=== PATIENT | female | born 1945 | race Hispanic/Latino ===

== ENCOUNTER 2016-12-09 16:02 | Emergency (ER) | payer MEDICARE, MEDICAID ==
[~2016-12-09] VITALS: Ht 152.4 cm; Wt 85.0 kg
[~2016-12-09 16:02] MED LIST: AGGRENOX 200/251 CAP PO; ALBUTEROL SUL0.083 % IN; ALBUTEROL0.5 % IN; ALBUTEROL2.5 MG/31 IN; ALREX0.2 % OP; ALREX0.2 % OU; ANTI-FUNGAL12 TOP; ASPIRIN LOW DOS81 M2 PO; ASPIRIN81 M1 OR; ASPIRIN81 MG OR; ATARAX OR; ATROVENT I0.5 MG/VIA IN; ATROVENT INH0.5 MG IN; BABY ASPIRIN81 MG PO; BACLOFEN10 MG PO; BAYER LOW81 MG OR; BAYER LOW81 MG PO; BENICAR HCT1 TA2 PO; BENICAR40 MG OR; BENICAR40 MG PO; CEFTIN500 MG PO; CIPRO500 MG OR; CIPRODEX1 ML AS; CIPROFLOXACN500 MG PO; CLOPIDOGREL75 MG PO; CORTISPORIN OTI10 ML AD; CYANOCOBALAM1000 MCG IJ; CYANOCOBALAM1000 MCG IM; CYANOCOBALAM1000 MCG SC; DARVOCET-N 100100 MG OR; DICLOFENAC SODIUM3 % TOP; DIPYRIDAMOLE25 MG OR; DIPYRIDAMOLE25 MG PO; DOXYCYCL HYC100 MG PO; DULERA1 AE1 IN; DUONEB IN; FLONASE NASAL50 MCG; FLONASE0.05 %; FLORASTOR250 M1 PO; FLOVENT DISK100 MCG IN; FLUTICASONE50 MCG; HYDROCHLOROT25 MG OR; HYDROCHLOROT25 MG PO; HYDROXYZ HCL25 MG PO; KETOROLAC10 MG PO; KETOROLAC60 MG/2 ML IJ; LEVAQUIN500 MG PO; LISINOP/HCTZ1 TA1 PO; LISINOP/HCTZ1 TA2 PO; LISINOP/HCTZ1 TAB PO; LOPERAMIDE1 MG/5 ML OR; LOTRISONE EX; Levaquin OR; MECLIZINE12.5 M1 PO; MEDDOSEPAK OR; MEDDOSEPAK PO; NASONEX50 MCG/AC NAS; NEBULIZE1 INH; NEXIUM40 M1 OR; OMEPRAZOLE20 MG PO; OMEPRAZOLE40 MG PO; PERCOCET 5/325M1 TAB OR; PERCOCET1 TA2 PO; PERSANTINE25 MG OR; PERSANTINE25 MG PO; PERSANTINE75 MG PO; PREDNISONE10 MG PO; PREDNISONE20 MG PO; PREVACID30 M1 PO; PREVACID30 M2 OR; PRILOSEC20 MG PO; PRILOSEC20 MG/CAP PO; PRILOSEC40 MG PO; PROAIR HFA IN; PROTONIX40 M2 PO; SIMVASTATIN10 MG PO; SIMVASTATIN20 MG PO; TETRACYCLINE500 MG OR; TIZANIDINE4 MG PO; TORADOL30 MG/VIAL IJ; TRAMADOL HCL50 MG PO; TRIAMCINOLON0.5 % EX; TYLENOL500 MG OR; ULTRAM50 MG OR; ULTRAM50 MG PO; VISINE0.05 % OP; VITAMIN C500 M1 OR; VYTORIN 10/201 TAB OR; ZITHROMAX250 MG OR; ZITHROMAX500 MG PO; ZOCOR20 MG OR; ZOCOR20 MG PO; ZPAK OR; ZPAK PO; ZYRTEC10 MG OR
[2016-12-09] MEDS ORDERED: MECLIZINE25 MG PO (16:22)
[2016-12-09] MEDS ORDERED: LORTAB 5-325 MG1 TAB PO (16:55)
[2016-12-09] MEDS ORDERED: EC-NAPROSYN500 MG PO (16:55)
[2016-12-09 17:00] VITALS: BP 122/77
== END 2016-12-09 17:10 | disposition home or self-care (01) ==
LOC: ED 16:02
DX: M75.51 Bursitis of right shoulder (principal); M19.90 Unspecified osteoarthritis, unspecified site; I10 Essential (primary) hypertension; Z86.73 Personal history of transient ischemic attack (TIA), and cerebral infarction without residual deficits; E78.00 Pure hypercholesterolemia, unspecified; F17.210 Nicotine dependence, cigarettes, uncomplicated; Z96.611 Presence of right artificial shoulder joint

== ENCOUNTER 2017-09-01 07:16 | Day surgery (SDC) | payer MEDICARE, MEDICAID ==
[~2017-09-01 07:16] MED LIST changes: +EC-NAPROSYN500 MG PO; +IBUPROFEN200 MG PO; +LORTAB 5-325 MG1 TAB PO; +MECLIZINE25 MG PO
[2017-09-01 10:03] VITALS: BP 140/62
== END 2017-09-01 10:25 | disposition home or self-care (01) ==
LOC: ENDO 07:16 → ORM 08:40 → ENDO 08:40 → ORM 09:00 → ENDO 10:25
PROVIDERS: ATTEND Surgery
PROC: 0DB48ZX Excision of Esophagogastric Junction, Via Natural or Artificial Opening Endoscopic, Diagnostic (ICD-10-PCS; principal; 2017-09-01)
PROC: 0DB68ZX Excision of Stomach, Via Natural or Artificial Opening Endoscopic, Diagnostic (ICD-10-PCS; 2017-09-01)
PROC: 0DBM8ZX Excision of Descending Colon, Via Natural or Artificial Opening Endoscopic, Diagnostic (ICD-10-PCS; 2017-09-01)
DX: K29.50 Unspecified chronic gastritis without bleeding (principal); K63.5 Polyp of colon; R19.4 Change in bowel habit

== ENCOUNTER 2018-01-17 15:45 | Emergency (ER) | payer MEDICARE, MEDICAID ==
[~2018-01-17] VITALS: Ht 160 cm; Wt 70.0 kg
[2018-01-17] MEDS ORDERED: ZITHROMAX250 MG PO (16:32)
[2018-01-17] MEDS ORDERED: MEDDOSEPAK PO (16:32)
[2018-01-17] MEDS ORDERED: MECLIZINE25 MG PO (16:36)
[2018-01-17] MEDS ORDERED: LOSARTAN/HCT1 TA1 PO (16:37)
[2018-01-17] MEDS ORDERED: DIPYRIDAMOLE25 MG PO (16:37)
[2018-01-17 16:55] VITALS: BP 140/71
== END 2018-01-17 16:55 | disposition home or self-care (01) ==
LOC: ED 15:45
DX: J40 Bronchitis, not specified as acute or chronic (principal); F17.210 Nicotine dependence, cigarettes, uncomplicated; R05 Cough

== ENCOUNTER 2019-03-24 | Emergency (ER) | payer MEDICARE, MEDICAID ==
[~2019-03-24] MED LIST changes: +LOSARTAN/HCT1 TA1 PO; +ZITHROMAX250 MG PO
[2019-03-24] MEDS ORDERED: NAPROXEN500 MG PO ×2 (15:02)
== END 2019-03-24 14:45 | disposition home or self-care (01) ==
DX: S43.401A Unspecified sprain of right shoulder joint, initial encounter (principal); I10 Essential (primary) hypertension; J44.9 Chronic obstructive pulmonary disease, unspecified; F17.200 Nicotine dependence, unspecified, uncomplicated; X58.XXXA Exposure to other specified factors, initial encounter; Z96.611 Presence of right artificial shoulder joint; Z86.73 Personal history of transient ischemic attack (TIA), and cerebral infarction without residual deficits

== ENCOUNTER 2019-08-31 12:06 | Emergency (ER) | payer MEDICARE, MEDICAID ==
[~2019-08-31] VITALS: Ht 160 cm; Wt 60.0 kg
[~2019-08-31 12:06] MED LIST changes: +NAPROXEN500 MG PO
[2019-08-31 12:10] VITALS: BP 163/69
[2019-08-31] MEDS ORDERED: BACTROBAN TOP (12:40)
== END 2019-08-31 13:00 | disposition home or self-care (01) ==
LOC: ED 12:06
DX: T63.441A Toxic effect of venom of bees, accidental (unintentional), initial encounter (principal); I10 Essential (primary) hypertension; J44.9 Chronic obstructive pulmonary disease, unspecified; F17.210 Nicotine dependence, cigarettes, uncomplicated; Y92.009 Unspecified place in unspecified non-institutional (private) residence as the place of occurrence of the external cause; Z86.73 Personal history of transient ischemic attack (TIA), and cerebral infarction without residual deficits

== ENCOUNTER 2020-02-28 10:34 | Emergency (ER) | payer MEDICARE, MEDICAID ==
[~2020-02-28] VITALS: Ht 160 cm; Wt 66.8 kg
[~2020-02-28 10:34] MED LIST changes: +BACTROBAN TOP
[2020-02-28] MEDS ORDERED: ULTRAM50 M1 PO (11:38)
[2020-02-28] MEDS ORDERED: MICARDIS80 MG PO (11:47)
[2020-02-28] MEDS ORDERED: ADULT ASPIRIN R81 MG PO (11:48)
[2020-02-28] MEDS ORDERED: SIMVASTATIN20 MG PO (11:49)
[2020-02-28] MEDS ORDERED: NAPROXEN250 MG PO (11:49)
[2020-02-28 11:50] VITALS: BP 145/74
== END 2020-02-28 11:50 | disposition home or self-care (01) ==
LOC: ED 10:34
DX: S92.522A Displaced fracture of middle phalanx of left lesser toe(s), initial encounter for closed fracture (principal); I10 Essential (primary) hypertension; J44.9 Chronic obstructive pulmonary disease, unspecified; F17.210 Nicotine dependence, cigarettes, uncomplicated; W01.0XXA Fall on same level from slipping, tripping and stumbling without subsequent striking against object, initial encounter; Y92.007 Garden or yard of unspecified non-institutional (private) residence as the place of occurrence of the external cause; Z86.73 Personal history of transient ischemic attack (TIA), and cerebral infarction without residual deficits

== ENCOUNTER 2020-07-29 12:22 | Emergency (ER) | payer MEDICARE, MEDICAID ==
[~2020-07-29] VITALS: Ht 160 cm; Wt 80.0 kg
[~2020-07-29 12:22] MED LIST changes: +ADULT ASPIRIN R81 MG PO; +MICARDIS80 MG PO; +NAPROXEN250 MG PO; +ULTRAM50 M1 PO
[2020-07-29 14:21] LABS: HEMATOCRIT 42.3 % (37.0-47.0); HEMOGLOBIN 13.3 g/dl (12.0-16.0); IMMATURE GRANULOCYTES 0.4 % (0.0-5.0); MEAN CORPUSCULAR HGB 28.6 pG CALC (26.0-32.0); MEAN CORPUSCULAR HGB CONC 31.4 g/dL CAL (32.0-36.0); NEUT# 7.5 thou/uL (2.00-7.15); RED BLOOD COUNT 4.65 mill/uL (4.20-5.60); RED CELL DISTRI WIDTH 13.7 % (11.5-15.5)
[2020-07-29 14:37] LABS: ALBUMIN 4.8 g/dL (3.2-5.0); ALKALINE PHOSPHATASE 88 u/l (38-126); AMYLASE 52 u/l (30-110); ANION GAP 13 (6-22 (CALC)); BUN 19 mg/dL (8-23); BUN/CREATININE RATIO 28 (12-20 (CALC)); CARBON DIOXIDE 26 mmol/l (22-30); CHLORIDE 102 mmol/l (95-108); CREATININE 0.7 mg/dL (0.5-1.0); GFR > 60 ML/MIN (>=60 (CALC)); GFR FOR AFR.AMER. > 60 ML/MIN (>=60 (CALC)); LIPASE 27 u/l (23-300); POTASSIUM 4.4 mmol/l (3.5-5.1); SGOT/AST 29 u/l (9-36); SODIUM 137 mmol/l (137-146); TOTAL PROTEIN 8.5 g/dL (6.3-8.2)
[2020-07-29 14:38] LABS: BILIRUBIN, TOTAL 0.6 mg/dL (0.0-1.4)
[2020-07-29 14:44] LABS: PROTHROMBIN TIME 10.6 SECONDS (9.0-12.5)
[2020-07-29 14:46] LABS: MYOGLOBIN 49 ng/mL (0 - 62)
[2020-07-29] MEDS ORDERED: ULTRAM50 M1 PO (15:49)
[2020-07-29 15:52] LABS: URINE BILIRUBIN - DIPSTICK NEGATIVE (NEGATIVE); URINE BLOOD DIPSTICK MODERATE (NEGATIVE); URINE COLOR YELLOW; URINE GLUCOSE - DIPSTICK NEGATIVE (NEGATIVE); URINE KETONE NEGATIVE (NEGATIVE); URINE LEUK ESTERASE NEGATIVE (NEGATIVE); URINE PROTEIN - DIPSTICK NEGATIVE (NEG-TRACE); URINE UROBILINOGEN - DIPSTICK 0.2 E.U./dL (0.2)
[2020-07-29] MEDS ORDERED: PREVACID30 M3 PO (15:53)
[2020-07-29 15:59] LABS: URINE NITRITE - DIPSTICK NEGATIVE (Negative)
[2020-07-29 16:05] LABS: URINE WBC 0-2 WBC/hpf (0-5)
[2020-07-29] MEDS ORDERED: CIPROFLOXACN500 MG PO (16:08)
[2020-07-29 16:12] VITALS: BP 153/69
== END 2020-07-29 16:25 | disposition home or self-care (01) ==
LOC: ED 12:22
PROVIDERS: Emergency Medicine
DX: K64.9 Unspecified hemorrhoids (principal); N39.0 Urinary tract infection, site not specified; R10.9 Unspecified abdominal pain; M25.511 Pain in right shoulder; G89.29 Other chronic pain; I10 Essential (primary) hypertension; E78.00 Pure hypercholesterolemia, unspecified; J44.9 Chronic obstructive pulmonary disease, unspecified; F17.200 Nicotine dependence, unspecified, uncomplicated; Z86.73 Personal history of transient ischemic attack (TIA), and cerebral infarction without residual deficits; Z87.11 Personal history of peptic ulcer disease
CPT/HCPCS: S0164

== ENCOUNTER 2023-12-05 09:40 | Emergency (ER) | payer MEDICARE, MEDICAID ==
[~2023-12-05] VITALS: Ht 160 cm; Wt 65.8 kg
[~2023-12-05 09:40] MED LIST changes: +PREVACID30 M3 PO
[2023-12-05 09:50] VITALS: BP 137/60
[2023-12-05 10:00] VITALS: BP 125/62
[2023-12-05 10:16] VITALS: BP 115/60
[2023-12-05 10:31] VITALS: BP 135/67
[2023-12-05 10:45] VITALS: BP 118/60
[2023-12-05] MEDS ORDERED: NAPROXEN500 MG PO (10:54)
[2023-12-05 11:00] VITALS: BP 129/63
[2023-12-05] MEDS ORDERED: KETOROLAC TROMETHAMINE 30 MG/ML SDV IM ONE (11:00)
== END 2023-12-05 11:07 | disposition home or self-care (01) ==
LOC: ED 09:40
DX: S93.402A Sprain of unspecified ligament of left ankle, initial encounter (principal); S93.602A Unspecified sprain of left foot, initial encounter; S80.12XA Contusion of left lower leg, initial encounter; I10 Essential (primary) hypertension; J44.9 Chronic obstructive pulmonary disease, unspecified; E78.00 Pure hypercholesterolemia, unspecified; F17.200 Nicotine dependence, unspecified, uncomplicated; W18.2XXA Fall in (into) shower or empty bathtub, initial encounter; Y93.E1 Activity, personal bathing and showering; Z79.01 Long term (current) use of anticoagulants; Z87.11 Personal history of peptic ulcer disease; Z86.73 Personal history of transient ischemic attack (TIA), and cerebral infarction without residual deficits; Y92.002 Bathroom of unspecified non-institutional (private) residence as the place of occurrence of the external cause

== ENCOUNTER 2024-04-20 11:20 | Emergency (ER) | payer MEDICARE, MEDICAID ==
[~2024-04-20] VITALS: Ht 160 cm; Wt 59.3 kg
[2024-04-20] VITALS (11 sets, daily range): BP systolic 136–188; BP diastolic 53–72
[2024-04-20] MEDS ORDERED: ONDANSETRON HCl 4 MG/2 ML SDV IV ONE (11:40)
[2024-04-20] MEDS ORDERED: ONDANSETRON 4 MG/TAB ODT PO ONE (12:00)
[2024-04-20 12:16] LABS: BASO% 0.2 % (0-3); EOS% 3.6 % (0-8); HEMATOCRIT 41.2 % (37.0-47.0); HEMOGLOBIN 13.2 g/dl (12.0-16.0); IMMATURE GRANULOCYTES 0.1 % (0.0-5.0); LYMPH% 28.5 % (15-41); MEAN CELL VOLUME 89.6 fL CALC (80.0-100.0); MEAN CORPUSCULAR HGB 28.7 pG CALC (26.0-32.0); MONO% 8.1 % (2-13); NEUT# 4.77 thou/uL (2.00-7.15); NEUT% 59.5 % (42-76); RED BLOOD COUNT 4.6 mill/uL (4.20-5.60); RED CELL DISTRI WIDTH 13.7 % (11.5-15.5)
[2024-04-20 12:29] LABS: ALBUMIN 4.4 g/dL (3.2-5.0); ALKALINE PHOSPHATASE 95 u/l (38-126); ANION GAP 11 (6-22 (CALC)); BILIRUBIN, TOTAL 0.6 mg/dL (0.02-1.3); BUN 14 mg/dL (8-23); BUN/CREATININE RATIO 26 (12-20 (CALC)); CARBON DIOXIDE 26 mmol/l (22-30); CHLORIDE 106 mmol/l (95-108); CREATININE 0.5 mg/dL (0.5-1.0); ESTIMATED GFR 96 ML/MIN (>=90 (CALC)); LIPASE 31 u/l (23-300); SGOT/AST 34 u/l (9-36); SODIUM 139 mmol/l (137-146); TOTAL PROTEIN 7.5 g/dL (6.3-8.2)
[2024-04-20 13:14] LABS: URINE BILIRUBIN - DIPSTICK Negative (NEGATIVE); URINE BLOOD DIPSTICK Small (NEGATIVE); URINE GLUCOSE - DIPSTICK Negative (NEGATIVE); URINE KETONE Negative (NEGATIVE); URINE LEUK ESTERASE Negative (NEGATIVE); URINE NITRITE - DIPSTICK Negative (Negative); URINE PH 6.5 (4.5-8.0); URINE PROTEIN - DIPSTICK Negative (NEG-TRACE); URINE UROBILINOGEN - DIPSTICK 0.2 E.U./dL (0.2)
[2024-04-20 13:23] LABS: URINE COLOR Yellow
[2024-04-20 13:26] LABS: URINE RBC 0-2 RBC/hpf (0-5); URINE SQUAMOUS EPITHELIAL CELL RARE EPI/hpf (0-FEW)
[2024-04-20] MEDS ORDERED: DICYCLOMINE HYD10 MG PO (14:11)
== END 2024-04-20 14:30 | disposition home or self-care (01) ==
LOC: ED 11:20
PROVIDERS: Family Medicine; Nurse Practitioner
DX: R10.30 Lower abdominal pain, unspecified (principal); I10 Essential (primary) hypertension; J44.9 Chronic obstructive pulmonary disease, unspecified; F17.200 Nicotine dependence, unspecified, uncomplicated; Z87.11 Personal history of peptic ulcer disease; R10.9 Unspecified abdominal pain; Z98.890 Other specified postprocedural states